=== PATIENT | female | born 2000 | race Caucasian/White ===

== ENCOUNTER 2023-05-18 15:09 | Emergency (ER) | payer OTHER, SELFPAY ==
--- NOTE | ~2023-05-18 | XR_ITS ---
EXAMINATION: XR chest 2V DATE: 05/18/2023 15:35 INDICATION: Cough and wheezing. TECHNIQUE: Frontal and lateral views of the chest were obtained. COMPARISON: Chest 2 views 10/04/2007 FINDINGS: There is no pneumonia, pleural effusion, or pneumothorax. The heart size is normal. IMPRESSION: 1. No acute cardiopulmonary disease. Reviewed, dictated and finalized at location A. PERSON
--- NOTE | 2023-05-18 15:20 | ED.URI ---
HPI - URI/Sore Throat General Chief Complaint: Upper Respiratory Infection Stated Complaint: LUNG PAIN Source: patient Mode of arrival: ambulatory Limitations: no limitations History of Present Illness HPI Narrative: 22 y/o female presented for CXR after testing positive for Strep and sinus infection today at outside . Given Rx Zpack and Augmentin and albuterol. Pt was also advised to get CXR because the was unable to perform it; pt had stated when she took deep breath she felt a sharp pain to the left lung. Endorses sinus congestion sore throat and cough with occasional wheeze for over one week. Taking benadryl for symptoms. Denies sob, n/v/d/f/c. Related Data Home Medications Medication Instructions Recorded Confirmed albuterol sulfate 90 mcg/actuation 90 mcg inhalation 05/18/23 aerosol inhaler (Ventolin HFA) amoxicillin 875 mg-potassium 1 tablet PO DAILY 05/18/23 05/18/23 clavulanate 125 mg tablet azithromycin 250 mg tablet 250 mg PO DAILY 05/18/23 05/18/23 drospirenone 3 mg-ethinyl 1 tablet PO DAILY 05/18/23 05/18/23 estradiol 0.02 mg tablet levothyroxine 100 mcg tablet 100 mcg PO DAILY 05/18/23 05/18/23 methylphenidate HCl 18 mg 18 mg PO DAILY 05/18/23 05/18/23 tablet,extended release 24 hr Allergies Allergy/AdvReac Type Severity Reaction Status Date / Time No Known Allergies Allergy Verified 05/18/23 15:24 Review of Systems Review of Systems: CONSTITUTIONAL: Denies body aches, fever, chills, or sweats. EYES: Denies visual changes, redness, or discharge. ENT: Reports rhinorrhea, congestion, sore throat, ear popping denies otalgia. CARDIOVASCULAR: Denies chest pain, palpitations, or edema. RESPIRATORY: Reports cough, denies sob, wheezing. GASTROINTESTINAL: Denies abdominal pain, nausea, vomiting, or diarrhea. GENITOURINARY: Denies dysuria or hematuria. SKIN: Denies rash, itching, or wounds. MUSCULOSKELETAL: Denies back pain, joint pain, or myalgia. NEUROLOGIC: Denies headache, numbness, tingling, or weakness. All systems reviewed & are unremarkable except as noted in HPI and below [facility] Past Medical History Medical History (Updated 05/18/23 @ 15:57 by Nichole Brooke, JEWEL) No pertinent past medical history Comments At time of signature, I have reviewed and agree with nursing past medical, surgical, social and family history unless otherwise noted. Please see nursing chart for further information. There is no relevant family history pertinent to the presenting complaint Exam Narrative: GENERAL: mildly ill-appearing, in no acute distress. EYES: EOMI. No redness or drainage. Conjunctivae normal. ENT: Mucous membranes pink and moist. Mild rhinorrhea. TMs normal bilaterally. Throat erythematous with tonsillar enlargement 2+, no exudate. Uvula midline. NECK: Normal AROM. Supple. CHEST: No respiratory distress. Lungs clear to all vidales. HEART: Regular rate and rhythm. No murmur appreciated. ABDOMEN: Soft, nontender, nondistended, normal active bowel sounds. EXTREMITIES: Normal range of motion. No edema. SKIN: Warm, dry, no rash. Capillary refill normal. Normal skin turgor. NEURO: Alert and oriented x3. Gait steady. PSYCH: Normal affect. Course Course Emergency Course: Patient is aware of diagnosis, understands and agrees to treatment plan. Anticipatory guidance given. Patient agrees to follow-up as directed and is aware of reasons to seek care at the emergency department. Portions of this record may have been created with voice recognition software Level of Care: Express Care Visit Vital Signs Vital signs: Vital Signs Temperature 98.2 F 05/18/23 15:22 Pulse Rate 90 05/18/23 15:22 Respiratory Rate 16 05/18/23 15:22 Blood Pressure 112/75 05/18/23 15:22 Pulse Oximetry 100 05/18/23 15:22 Temperature 98.2 F 05/18/23 15:24 Pulse Rate 90 05/18/23 15:24 Respiratory Rate 16 05/18/23 15:24 Blood Pressure 112/75 05/18/23 15:24
[2023-05-18 15:22] VITALS: BP 112/75; PULSE 90; RESP 16; TEMP 36.8; O2SAT 100
[2023-05-18 15:24] VITALS: BP 112/75; PULSE 90; RESP 16; TEMP 36.8; O2SAT 100
== END 2023-05-18 16:01 | disposition home or self-care (01) ==
PROVIDERS: Emergency Provider Nurse Practitioner Family
DX: J02.9 Acute pharyngitis, unspecified (principal)
CPT/HCPCS: 71046; 99213; G0463